=== PATIENT | female | born 1970 | race African-American/Black ===

== ENCOUNTER 2019-05-01 22:31 | Observation (INO) ==
[2019-05-01] MEDS ORDERED: NS 1,000 ML IV ONE (22:39)
[2019-05-01 22:59] LABS: BASO# 0.04 X1000 (0.0-0.2); BASO% 0.3 % (0.0-0.8); EOS# 0.88 X1000 (0.0-0.7); EOS% 6.6 % (0.0-10.0); HEMATOCRIT 30.5 % (37.0-47.0); HEMOGLOBIN 9.8 g/dL (12.0-16.0); IMM GRAN# 0.04 X1000 (0.0-0.04); IMM GRAN% 0.3 % (0.0-0.5); LYMPH# 2.65 X1000 (1.2-3.4); LYMPH% 19.8 % (20.5-51.1); MCH 24.7 PG (27-31); MCHC 32.1 g/dL (33-37); MCV 76.8 FL (81-99); MONO# 0.78 X1000 (0.11-0.59); MONO% 5.8 % (1.7-9.3); MPV 10.7 FL (7.4-10.4); NEUT# 8.98 X1000 (1.4-6.5); NEUT% 67.2 % (42.2-75.2); PLT 425 X1000 (130-400); RBC 3.97 XMIL (4.2-5.4); RDW 19.3 % (11.5-14.5); RETIC% 1.92 % (0.8-2.1); RETIC-HE 25.8 PG (28.2-36.6); WBC 13.37 X1000 (4.8-10.8)
--- NOTE | 2019-05-01 22:59 | PROVIDER DOCUMENTATION ---
This chart was entered by Mariana Lee Scribe, acting as scribe for Rob Donohue MD. HPI-General Adult - General Chief Complaint: Sickle Cell Crisis Stated Complaint: SICKLE CELL Time Seen by Provider: 05/01/19 22:39 Source: patient Allergies/Adverse Reactions: Patient Allergies Allergy/AdvReac Type Severity Reaction Status Date / Time butorphanol [From Stadol] Allergy Severe ANAPHYLAXIS Verified 04/23/19 04:40 hydromorphone [From Dilaudid] Allergy Severe ANAPHYLAXIS Verified 04/23/19 04:41 morphine Allergy Severe ANAPHYLAXIS Verified 04/23/19 04:40 ondansetron [From Zofran] Allergy Severe ANAPHYLAXIS Verified 04/23/19 04:41 Home Medications: Home Medication List Medication Instructions Recorded Confirmed Last Taken Type Vitamins B1,B2,B3,B5,and B6 30 ml IJ DIRECTED 04/23/19 04/23/19 04/12/19 History [B-Complex 100 Injection] Carisoprodol [Soma] 250 mg PO QHS PRN #14 tab 04/26/19 Unknown Rx CefDINIR [Omnicef] 300 mg PO BID #12 cap 04/26/19 Unknown Rx Folic Acid 1 mg PO DAILY #30 tab 04/26/19 Unknown Rx Gabapentin [Neurontin] 100 mg PO TID@0900,1500,2100 #90 04/26/19 Unknown Rx cap Hydroxyurea [Hydrea] 500 mg PO DAILY #30 cap 04/26/19 Unknown Rx Oxycodone/APAP 10 mg/325 mg 1 ea PO Q6H PRN PRN #30 tab 04/26/19 Unknown Rx [Percocet-10] - History of Present Illness -Gen Adult Nature of Presenting Problems: 49 yobf c/o bilat LE and UE pain x2 hours. pt has sickle cell and has been in er 2 diff times in 2 months for same symptoms. denies cp, sob and fever. pt also has hx of anemia. Review of Systems - Adult - REVIEW OF SYSTEMS - ADULT Constitutional: reports: no symptoms reported. denies: chills, fever, fatique Eyes: reports: no symptoms reported Ears, Nose, Mouth & Throat: reports: no symptoms reported Cardiovascular: reports: no symptoms reported. denies: chest pain, edema, palpitations Respiratory: reports: no symptoms reported. 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 denies: back pain, muscle weakness, neck pain Integumentary: reports: no symptoms reported Neurological: reports: no symptoms reported Psychiatric: reports: no symptoms reported Endocrine: reports: no symptoms reported Hematologic/Lymphatic: reports: no symptoms reported Allergic/Immunologic: reports: no symptoms reported All Other Systems: Reviewed and Negative Past History - Adult - PAST MEDICAL HISTORY-ADULT Review of Records: reports: Old Records Reviewed, Nursing Assessment Review, Medications Reviewed, Social history reviewed & non-contributory. Major Childhood Illnesses: reports: denies history Cardiovascular: reports: denies history Respiratory: reports: denies history Gastrointestinal: reports: denies history Obstetrical/Gynecological: reports: denies history Genitourinary: reports: denies history Musculoskeletal: reports: denies history Neurological: reports: denies history Endocrine/Immune: reports: anemia, Sickle Cell disease Other Conditions: reports: denies history - PRIOR SURGERIES/PROCEDURES Surgical/Procedure History: reports: none - IMMUNIZATION STATUS Childhood Immunizations: See Nurse Assessment Flu Vaccine: See Nurse Assessment - FAMILY HISTORY Family History: reviewed, not pertinent - SOCIAL HISTORY Smoking: non-smoker Substance Use: none/never Physical Exam-General - PHYSICAL EXAM-ADULT Initial Vital Signs Reviewed: Yes - CONSTITUTIONAL General Appearance: appears well, alert, no apparent distress. negative: le thargic, slow to respond, obtunded - EYES Eyes: PERRL/EOMI, pink conjunctivae - HEAD, EARS, NOSE, MOUTH & THROAT HENMT: normocephalic/atraumatic, moist mucous membranes, normal ENT inspection - NECK Neck: non-tender, supple. negative: full range of motion (ej in place) - RESPIRATORY Respiratory: chest non-tender, lungs clear, normal breath sounds - CARDIOVASCULAR Cardiovascular: normal peripheral pulses, regular rate, rhythm - GASTROINTESTINAL (ABDOMEN) Abdominal Exam: normal bowel sounds, non tender, soft - LYMPHATIC Lymphatic: no adenopathy - MUSCULOSKELETAL Back Exam: normal inspection, no CVA tenderness, no vertebral tenderness Extremity: normal range of motion, non-tender, normal inspection, no pedal edema , no calf tenderness, normal capillary refill, other (2+ ankle edema). negative: deformity, erythema, inflammation, slow capillary refill Peripheral Pulses: dorsalis-pedis (R): 2+, dorsalis-pedis (L): 2+ - SKIN Integumentary: normal color, normal turgor, warm/dry - NEUROLOGIC Neurologic: grossly normal, no motor/sensory deficits - PSYCHIATRIC Psych/Mental Status: normal mood/affect, normal thought content, normal thought process, oriented x 3 Progress - PLAN OF CARE/RESULTS Progress/Plan/Lab Results: Vital Signs - 8 hr 05/01/19 22:32 Temperature 98.4 F Pulse Rate 115 H Respiratory Rate 18 Blood Pressure 129/79 Orders Category Date Time Status BMP [BASIC METABOLIC PANEL] [CHEM] Stat Lab 05/01/19 22:50 Ordered CBC WITH ELECTRONIC DIFF [HEME] Stat Lab 05/01/19 22:39 Ordered RETIC COUNT [HEME] Stat Lab 05/01/19 22:49 Ordered 0.9% Sodium Chloride Inj [Ns] 1,000 ml Med 05/01/19 22:39 Active IV 999 mls/hr Oxygen Device Stat Oth 05/01/19 22:40 Active Result Diagrams: 05/01/19 22:50 05/01/19 22:50 - REASSESSMENT Reassessment #1 Time Reassessed: 23:55 Status: unchanged Reassessment Comment: continues to have pain despite IV demerol - CONSULTS/PCP/HOSPITALIST Notification #1 *Consult/PCP/Hospitalist*: DR. QUAN,hospitalist Time Discussed: 00:10 Consult Disposition: Admit Departure - Departure Date of Disposition Decision: 05/02/19 Time of Disposition Decision: 00:11 DIAGNOSIS: Hb-SS disease with crisis Disposition: ADMITTED INPATIENT 09 Certified Medical Emergency: Emergent Condition: Stable Referrals and Follow-Ups: None,PCP [Primary Care Provider] - - Critical Care Note This patient required my direct & personal management of CC.: No Attestation - Physician/ KHUSHBU Attestation Patient care was provided by Advanced Practice Provider:: No The physician spent face to face time with patient:: Yes Advanced Practice Provider documentation review:: Supervising physician onsite and consulted in the evaluation and care of this patient. The physician did have a face to face encounter with the patient. This chart was documented by the indicated scribe, (Lee,Mariana E., Scribe) and accurately reflects the services I performed and decisions made by me, Rob Donohue MD, as attested by the provider's signature.
[2019-05-01] MEDS ORDERED: DEMEROL IV ONE ×2 (23:05→23:39)
[2019-05-01] MEDS ORDERED: SODIUM CHLORIDE 0.9% INJ ONE ×2 (23:06→23:40)
[2019-05-01] MEDS ORDERED: PHENERGAN IV ONE ×2 (23:06→23:40)
[2019-05-01 23:15] LABS: AGAP 11; BUN 9 mg/dL (8-22); CALCIUM 8.9 mg/dL (8.8-10.2); CHLORIDE 103 mmol/L (98-107); COSMO 272; CREATININE 0.4 mg/dL (0.5-0.9); ESTIMATED GFR > 60; GLUCOSE 93 mg/dL (70-104); SODIUM 137 mmol/L (136-145); TCO2 23 mmol/L (25-35)
[2019-05-02] MEDS ORDERED: NS 1,000 ML IV ONE (00:11)
[2019-05-02] MEDS ORDERED: PHENERGAN IV PRN (00:14)
[2019-05-02] MEDS ORDERED: SODIUM CHLORIDE 0.9% INJ ONE ×2 (00:14→10:15)
[2019-05-02] MEDS ORDERED: SODIUM CHLORIDE 0.9% INJ PRN (00:30)
[2019-05-02 00:39] LABS: BILIRUBIN URINE NEGATIVE (NEGATIVE); BLOOD URINE NEGATIVE (NEGATIVE); CLARITY HAZY (CLEAR); COLOR YELLOW; GLUCOSE URINE NEGATIVE (NEGATIVE); KETONE URINE 1+(Small) mg/dL (NEGATIVE); LEUKOCYTES URINE 1+ (NEGATIVE); NITRITE URINE NEGATIVE (NEGATIVE); PROTEIN URINE TRACE mg/dL (NEGATIVE); SP GRAVITY URINE 1.025; UROBILINOGEN URINE 4 mg/dL
[2019-05-02 00:41] LABS: URINE WBC TNTC /HPF (<10)
[2019-05-02 00:42] LABS: URINE BACTERIA 4+ /HFP; URINE CAST NONE SEEN /LPF; URINE CRYSTAL NONE SEEN /HPF; URINE EPITHELIAL CELLS <10 /HPF (<10); URINE SOURCE CLEAN CATCH; URINE YEAST PRESENT /HPF
[2019-05-02] MEDS: DEMEROL IV PRN ×3 (02:03→08:12)
[2019-05-02 07:38] VITALS: BP 150/84
[2019-05-02] MEDS ORDERED: PERCOCET-10 PO PRN (08:46)
[2019-05-02] MEDS ORDERED: SOMA PO PRN (08:46)
[2019-05-02] MEDS ORDERED: NEURONTIN PO SCH (09:00)
[2019-05-02] MEDS ORDERED: HYDREA PO SCH (09:00)
[2019-05-02] MEDS ORDERED: FOLIC ACID PO SCH (09:00)
[2019-05-02] MEDS ORDERED: OMNICEF PO SCH (09:00)
[2019-05-02] MEDS ORDERED: DEMEROL IV ONE (09:53)
[2019-05-02] MEDS ORDERED: TYLENOL PO PRN (10:15)
[2019-05-02] MEDS ORDERED: PHENERGAN IV ONE (10:15)
[2019-05-02] MEDS ORDERED: NS 1,000 ML IV PRN (10:15)
--- NOTE | 2019-05-02 13:51 | HISTORY AND PHYSICAL ---
PRIMARY CARE PROVIDER: Dr. Coronado from [facility]. CHIEF COMPLAINT: Extremity pain and cramping. HISTORY OF PRESENT ILLNESS: Ms. Isha Garza is a 49-year-old, female with history of sickle cell anemia, usually treated at [facility] in [place] but most recently moved here about 4 to 6 weeks ago, according to her, and has started using our facilities. Normally, she is treated for her sickle cell crisis in [place] at [facility]. She was most recently seen here between 04/23/2019 and 04/26/2019. During that time, she received 2 units of packed red blood cells and was treated for pneumonia. Now she is back. Her hemoglobin is much improved. There is not a need for blood transfusion at this time. She states she usually only needs it about once a year prior to being here a little less than 2 weeks ago and needing blood. Prior to that, she did not need blood since October 2017. She also states that she is scheduled for 05/20/2019 to have a port placed at [facility] in [place]. She states that this pain started yesterday evening or early this morning. She is also requesting a specific amount of Demerol with Phenergan because she states she gets nauseated with pain medication. She is still currently receiving oral antibiotic therapy for the pneumonia and will resume that and recheck with a chest x-ray. PAST MEDICAL HISTORY: 1. Sickle cell anemia with frequent crisis, but only needs blood transfusions around once a year. 2. Recent pneumonia. 3. 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 SURGICAL HISTORY: None. Scheduled for port on 05/20/2019. SOCIAL HISTORY: Denies tobacco, alcohol or illicit drug use. She just moved to the [facility] about 4 to 5 weeks ago. She is single and disabled, has 3 adult children. FAMILY HISTORY: Mother had sickle cell anemia, and father had sickle cell trait. ALLERGIES: 1. Stadol. 2. Dilaudid. 3. Morphine. 4. Zofran. She is not sure which one, but apparently one of those caused anaphylaxis so now all 4 medications are named as allergies. HOME MEDICATIONS: 1. Vitamin B complex, B1, B2, B3, B5, and B6. 2. Soma 250 mg p.o. nightly as needed. 3. Folic acid 1 mg p.o. daily. 4. Hydroxy urea 500 mg p.o. daily. 5. Neurontin 100 mg p.o. t.i.d. 6. Cefdinir Omnicef 300 mg p.o. twice daily. 7. Percocet 10 1 tablet p.o. every 6 hours p.r.n. REVIEW OF SYSTEMS: A 14-point review of systems is complete and all are negative except for those mentioned above HPI. PHYSICAL EXAMINATION: VITAL SIGNS: Temperature 98 degrees, heart rate 94, respiratory rate 14, blood pressure 150/84, O2 saturation 100% on room air, 5 feet 4 inches tall, 139 pounds. BMI 23.9. GENERAL: Ms. Isha Garza is a 49-year-old, female. She is in no acute distress but she is rocking and rubbing her extremities due to the pain and is slightly anxious, requesting more pain medication. HEENT: Atraumatic, normocephalic. Pupils equal, round, reactive to light. Extraocular movements intact. Mucous membranes are moist. NECK: Trachea midline. CARDIOVASCULAR: S1, S2. Regular rate and rhythm. No rubs, gallops, murmurs. No lower extremity edema. +2 dorsalis and radial pulses. Negative JVD or carotid bruits. PULMONARY: Clear to auscultation. Bilateral breath sounds. No accessory muscle use or work of breathing noted. ABDOMEN: Soft, nontender, nondistended. Positive bowel sounds x4. EXTREMITIES: Moves all extremities equally. Full range of motion. NEUROLOGIC: Alert and oriented x3. Follows commands. Sensory is intact. SKIN: Warm, dry, intact. LABORATORY DATA: White blood cells 13,000, hemoglobin 9, hematocrit 30 platelet count 425. Sodium 137, potassium 5.0, BUN 9, creatinine 0.4, glucose 93, calcium 8.9. Urinalysis: Hazy urine, trace protein, 1+ ketones, 1+ white blood cells, too numerous to count microscopic white blood cells, and 4+ bacteria, and presented with yeast. IMAGING: None at this time. We have ordered a chest x-ray to re-evaluate her recent pneumonia. No micro yet. Urine cultures ordered. Blood cultures ordered. ASSESSMENT AND PLAN: 1. Sickle cell anemia with sickle cell crisis, acute on chronic pain. No need for blood transfusion at this time. She received most recently in the last week and half to 2 weeks when she was here, so we will treat her symptomatically with Demerol and Phenergan as she gets nauseated with the pain medicine. 2. Recent pneumonia. I am going to get a chest x-ray to re-evaluate. Currently she is continuing her Omnicef. Denies coughing up any colors, just has a dry cough. 3. Leukocytosis. It appears that she could have urinary tract infection but she is asymptomatic and so we are going to check a urine culture. We will check blood cultures and lactate. 4. Deep venous thrombosis prophylaxis with sequential compression devices. After social history. Family history mother had sickle cell. Anemia and father had sickle cell trait. Dictated by JUDY Ugarte for Ruddy Estes MD Addendum: Patient seen and examined by myself. Agree with JUDY note. It reflects my assessment and plan. Patient is being admitted to hospital for sickle cell crisis. Will provide IV fluids and pain medications and will monitor patient closely. Will monitor CBC daily as well. cc: JUDY Ugarte MD [facility]
--- NOTE | 2019-05-02 20:59 | DISCHARGE SUMMARY ---
ADMISSION DATE: 05/02/2019 DISCHARGE DATE: 05/02/2019 She left against medical advice due to a family member, an aunt, who this morning. ADMISSION DIAGNOSES: 1. Sickle cell anemia with acute on chronic pain. 2. Recent pneumonia. She was continued on her Omnicef. 3. Possible urinary tract infection. 4. Leukocytosis. DISCHARGE DIAGNOSES: 1. Sickle cell anemia with acute on chronic pain. 2. Recent pneumonia. She was continued on her Omnicef. 3. Possible urinary tract infection. 4. Leukocytosis. CONSULTATIONS: None. SURGERIES/PROCEDURES: None. HOSPITAL COURSE: Ms. Isha Garza is a 49-year-old, -[place] female, with sickle cell anemia, who was recently admitted in late March, with sickle cell crisis requiring 2 units of packed red blood cells. Normally, she is seen at [facility] in [place]. This time, her hemoglobin hematocrit are stable, but she is still having complaints of pain in all extremities. So, she is here for pain management at this time. Unfortunately, she was unable to be completely treated as she had a family member or an aunt that this morning and she left against medical advice. DISCHARGE VITAL SIGNS: Temperature 98.0 degrees, heart rate 94, respiratory rate 14, blood pressure 150/84, O2 saturation 100% on room air. DISCHARGE LABORATORY DATA: There are no changes in the lab data that were reported on the admission lab data. Although, there is a lactate that was available and it was 1.9. PERTINENT IMAGING: Chest x-ray that was ordered, was never able to be performed to follow up for pneumonia. MEDICATIONS ON DISCHARGE: She continued the same medication regimen that was prescribed back in March, which is Soma, folic acid, Hydrea, Neurontin, cefdinir, Percocet 10s. DISCHARGE DIET: Regular. DISCHARGE ACTIVITY: As tolerated. DISCHARGE INSTRUCTIONS: To return for medical care if there are any signs or symptoms of bleeding, fever, infection, extreme unbearable pain. She needs to find a primary care provider here. She only has one, that is in [place] at [facility]. She will need to follow up with him. For now, [*]. DISCHARGE DISPOSITION: Left against medical advice, likely going home. Dictated by JUDY Ugarte for Ruddy Estes MD cc: JUDY Ugarte MD
[2019-05-03] MEDS ORDERED: PRILOSEC PO SCH (09:00)
== END 2019-05-02 11:00 | disposition left against medical advice (07) ==
LOC: P.ED 22:31 → P.MEDSURG 22:31
PROVIDERS: ATTEND Internal Medicine
CPT/HCPCS: 80048; 81001; 83605; 85025; 85045; 87040; 87077; 87088; 87186; 94761; A9270; J2175; J2550; J7030; S0176